=== PATIENT | female | born 1980 | race Caucasian/White ===

== ENCOUNTER 2017-04-02 01:27 | Inpatient (IN) | payer OTHER ==
--- NOTE | 2017-03-17 11:59 | History & Physical Pre-Op ---
General Information and [facility] MD Statement: I have seen and personally examined MARIE JAIN and documented this H&P. The patient is a 36 year old F who presented with a patient stated chief complaint of neck pain radiating to bilateral upper extremities, right > left. Source of Information: patient Exam Limitations: no limitations History of Present Illness: Marie is a 36-year-old white female who has been complaining of neck pain for "years". She does report pain that radiates to bilateral upper extremities, right side greater than left. She denies any numbness/tingling or weakness in her upper extremities. She does report headaches, tinnitus, ear popping, right > left, and head pressure. She states her symptoms do vary depending on her activities but she does report a constant pain. She overall rates her pain as a 6/10 in intensity. She does admit that ice does help alleviate some of her symptoms. She has also tried physical therapy, Medrol dosepak, antibiotics, nonsteroidal anti-inflammatory medications, rest, ice, and heat, all of which have given her minimal and temporary symptom relief. Her MRI scan shows a right sided C5-6 disc herniation with cord abutment with mild right-sided foraminal stenosis. She also has degenerative disc disease. Given the fact that Marie has failed to respond to conservative measures and she has progressively worsening symptoms, she wants nothing more to do with nonsurgical treatment and has been consented for an anterior cervical decompression and fusion at C5-6 with instrumentation and iliac crest bone grafting on 04/02/2017. 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 MOTHER (hypertensionDDDspinal stenosis). maternal grandfather (Diabetes Mellitus). FATHER (hypertension). Psychosocial History Where Do You Live? Home Who Do You Live With? 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 Review of Systems Constitutional: Denies: no symptoms, see HPI. EENTM: Reports: see HPI. Cardiovascular: Reports: palpitations. Respiratory: Denies: no symptoms, see HPI. GI: Denies: no symptoms, see HPI. Genitourinary: Denies: no symptoms, see HPI. Musculoskeletal: Reports: back pain, muscle pain, neck pain. Skin: Denies: no symptoms, see HPI. Neurological/Psychological: Reports: see HPI, headache. Hematologic/Endocrine: Denies: no symptoms, see HPI. Immunologic/Allergic: Denies: no symptoms, see HPI. All Other Systems: Reviewed and Negative Post Menopausal: No Medication List Current Psychiatric Med(s): None Exam & Diagnostic Data Physical Exam: Height: 5'2" Weight: 125lbs. Physical Exam General Appearance Alert, Oriented X3, Cooperative, No Acute Distress Skin No Rashes, No Breakdown, No Significant Lesion HEENT Atraumatic, PERRLA, EOMI, Mucous Membr. moist/pink Neck Supple, No JVD, No thryomegaly, +2 Carotid Pulse wo Bruit Lymphatic Cervical nl Cardiovascular Regular Rate, Normal S1, Normal S2, No Murmurs Lungs Clear to Auscultation Abdomen Normal Bowel Sounds, Soft, No Tenderness, No Hepatospenomegaly, No Masses Neurological Normal Gait, Normal Speech, Strength at 5/5 X4 Ext, Normal Tone, Sensation Intact, Decreased right brachioradialis and biceps reflex., + Spurlings on the right, + Hoffmanns Extremities No Clubbing, No Cyanosis, No Edema, Normal Pulses Vascular Normal Pulses Assessment/Plan Assessment/Plan: Assessment: Right C5-6 disc herniation with cord abutment Plan: Marie is scheduled for an anterior cervical decompression and fusion C5-6 with instrumentation and iliac crest bone grafting on 04/02/2017. We discussed the procedure in full detail as well as the pre-and postoperative course, follow-up care, and anticipated recovery. We also discussed the risks, alternatives, and benefits. The risks were discussed and did not exclude , paralysis, infection, bleeding, continued pain, failure of the surgery, need for future surgery, DVT, vascular injury, CSF leak, hoarseness, and dysphagia, etc., and given these risks, she still wishes to proceed. She is scheduled to follow- up with her primary care physician for preoperative clearance. She has been advised to start taking calcium and vitamin D. Any changes in this patient's plan is based on the patient's outpatient clinical presentation. As Ranked By This Provider Problem List: 1. DDD (degenerative disc disease), cervical Copies To: MARCIANO SWANN,MIMI Ch Attending MD Review Statement Attending Statement Attending MD Statement: examined this patient, discuss w/resident/PA/SALES ADVISOR, agreed w/resident/PA/SALES ADVISOR, reviewed images
[~2017-04-02] VITALS: Ht 157.5 cm; Wt 55.3 kg
--- NOTE | 2017-04-02 10:17 | RADIOLOGY REPORT ---
EXAMINATION: XR CERVICAL SPINE CLINICAL INFORMATION: Anterior cervical discectomy with laminectomy C5-C6 performed in operating room. COMPARISON: None TECHNIQUE: C-arm fluoroscopic imaging support provided to Dr. Molina within operating room. AP and lateral spot fluoroscopy images are submitted into the electronic picture archive (2 saved images). Fluoroscopy time: 0.4 minutes. Dose: 1.44 mGy. FINDINGS: The patient is intubated within the operating room and fluoroscopic images demonstrate surgical changes of anterior discectomy and fusion at C5-C6. The anterior fusion plate, screws and intervertebral disc spacer/graft are in satisfactory position. The cervical alignment is normal. IMPRESSION: C-arm fluoroscopic imaging support provided to operating room for C5-C6 discectomy-fusion.
--- NOTE | 2017-04-02 10:20 | Operative Report ---
Operative/Inv Procedure Report Surgery Date: 04/02/17 Name of Procedure: Cervical discectomy and fusion with tricortical intradiscal autologous bone graft and anterior plate fixation C56 harvesting of tricortical structural bone graft right anterior iliac crest use of fluoroscopy. Pre-Operative Diagnosis: HNP C5 6 Post-Operative Diagnosis: HNP C5 6 Estimated Blood Loss: less than 50ml Surgeon/Dance Teacher: KEELY SWANN,TRISTEN HARRIS Anesthesia: general endotracheal tube Operative/Procedure Note Note: After adequate general anesthesia was achieved the patient was placed in the supine position with the head turned to the left and the shoulders taped to the side. Risks of the neck and right anterior iliac crest were sterilely prepped and draped and incision was made in line with the skin crease limits of the neck and carried sharply through the platysma. Blunt dissection was carried medial to the neurovascular bundle lateral to the visceral structures and a bent needle was placed within the C5 6 disc space. Fluoroscopy verified surgical level. The deep retractors were gently placed. Sharp annulotomy was created in C5 6 and the lamina leg breaker was used to gently distract directly disc space. The discectomy was performed through the annulus and posterior longitudinal ligament with the pituitary Olvin and the curettes. As a large herniated disc which was easily removed. The endplates were debrided with the high-speed bur and irrigation. Surgery went of the right anterior iliac crest. Subperiosteal dissection was carried medial and lateral to the crest the deep retractors were placed and the oscillating saw was used to collect a tricortical Loomis-Perez type graft. The wound was irrigated packed with bone stimulating implant and closed in layers with absorbable suture with subcuticular nylon in the skin. The graft was flushed with the high-speed bur to fit the disc space to be fused. Graft was tamped into position with excellent purchase in both endplates. Anterior plate was applied with excellent purchase in all 4 screws and the plate was put in using fluoroscopy in AP and lateral plane. Wound was irrigated hemostasis been achieved and a closure the platysma was performed with absorbable suture the skin was closed with nylon sterile dressings were applied and the patient was placed a cervical collar and [facility].
--- NOTE | 2017-04-02 10:34 | Patient Discharge Instructions ---
Acute Coronary Syndrome Inclusion Criteria At DC or during hospital stay patient has or had the following: ACS DIAGNOSIS No Discharge Core Measures Meds if any: Prescribed or Continued at Discharge Meds if any: NOT Prescribed or Continued at Discharge Congestive Heart Failure Inclusion Criteria At DC or during hospital stay patient has or had the following: CHF DIAGNOSIS No Discharge Core Measures Meds if any: Prescribed or Continued at Discharge Meds if any: NOT Prescribed or Continued at Discharge Cerebrovascular accident Inclusion Criteria At DC or during hospital stay patient has or had the following: CVA/TIA Diagnosis No Discharge Core Measures Meds if any: Prescribed or Continued at Discharge Meds if any: NOT Prescribed or Continued at Discharge Venous thromboembolism Inclusion Criteria VTE Diagnosis No VTE Type NONE VTE Confirmed by (Test) NONE Discharge Core Measures - Per Current guidelines, there needs to be overlap - treatment for the first 5 days of Warfarin therapy. - If discharged on Warfarin prior to 5 days of - overlap therapy, the patient will need to be - assessed for post discharge needs including - *Post discharge parental anticoagulation - *Warfarin and/or parental anticoagulation education - *Follow up date to check INR post discharge At least 5 days overlap therapy as Inpatient No Meds if any: Prescribed or Continued at Discharge Note: Overlap Therapy is Warfarin and Anticoagulant Meds if any: NOT Prescribed or Continued at Discharge
[2017-04-02] MEDS ORDERED: MILK OF MA400 MG/52 PO (10:37)
[2017-04-02] MEDS ORDERED: TYLENOL325 M1 PO (10:37)
[2017-04-02] MEDS ORDERED: PERCOCET 5-3251 EACH PO (10:37)
[2017-04-02] MEDS ORDERED: BISAC-EVAC10 M1 PR (10:37)
[2017-04-02] MEDS ORDERED: VITAMIN D31000 UNI2 PO (10:37)
[2017-04-02] MEDS ORDERED: ONE DAILY MULT1 EAC2 PO (10:37)
[2017-04-02] MEDS ORDERED: CALCIUM CARBON500 M2 PO (10:37)
[2017-04-02] MEDS ORDERED: DOCUSATE SODIU100 M3 PO (10:37)
[2017-04-02 12:30] VITALS: BP 106/60
--- NOTE | 2017-04-02 12:53 | PN- Orthopedic ---
Subjective Subjective: The patient was seen this afternoon postoperatively. She reports her pain was under adequate control and only complaints of a mild sore throat but denies any difficulty swallowing. The patient denies any numbness, weakness, or tingling in her extremities Objective Vital Signs and I&Os Vital signs: Blood pressure 130/60, pulse 75, temperature 97.2, O2 saturation 100% on room air I's and O's: 1700 ML's in of lactated Ringer's/patient has yet to void/EBL 50 ML Physical Exam: Gen.: Alert and in no obvious distress Skin: Warm and dry Neck: Supple with no notable hematoma or significant edema. Surgical dressing was clean, dry, and intact. Cardiac: S1-S2 regular Pulmonary: Bilateral breath sounds were equal with good exchange Extremities: Patient moves all 4 extremities with equal 5 out of 5 strength. Gross motor and sensory were intact. Bilateral lower extremities are warm without calf tenderness or significant edema. Assessment/Plan Assessment/Plan Assessment: 36 old female status post ACDF C5 through 6. Postoperative the patient is progressing as expected and her pain is under adequate control. She has a stable and nonfocal neuro exam. Plan: Out of bed and ambulate Continue current pain regiment IV hydration Strict I's and O's Advance diet as tolerated Monitor for postoperative void 1 dose of postoperative prophylactic antibiotics GI and DVT prophylaxis with Alps and early ambulation only.Cutaneous heparin due to bleeding risk and surgical contraindication Core Measures/Miscellaneous Venous Thromboembolism VTE Risk Factors: Surgery VTE Contraindications: Severe Spine Trauma x4 wk No Pharm VTE Prophylaxis D/T: Surgical Contraindication VTE Diagnosis: No Beta Carson Is Beta Carson a Home Med? No Antibiotics Is Patient on Antibiotics? Yes If Yes: prophylaxis
[2017-04-02 14:51] VITALS: BP 118/68
[2017-04-02 16:30] VITALS: BP 124/70
[2017-04-02 18:38] VITALS: BP 130/80
[2017-04-02 22:26] VITALS: BP 118/60
[2017-04-03 02:30] VITALS: BP 116/62
[2017-04-03 06:32] VITALS: BP 120/74
--- NOTE | 2017-04-03 07:12 | PN- Orthopedic ---
Subjective Subjective: The patient seen this morning postoperatively day #1. She complains of some incisional soreness but is otherwise comfortable at the current pain regiment. She was slightly nauseous last night after taking Percocet and empty stomach currently denies any nausea this morning. She has no complaints at the current time and denies any numbness, tingling, or weakness in her extremities. Objective Vital Signs and I&Os Vital Signs Date Time Temp Pulse Resp B/P B/P Pulse O2 O2 Flow FiO2 Mean Ox Delivery Rate 04/03 0632 98.8 76 16 120/74 99 Room Air 06/ 0230 98.3 76 16 116/62 98 Room Air 06/ 2226 98.4 77 20 118/60 97 Room Air / 1838 98.6 98 20 130/80 99 Room Air / 1630 97.9 94 20 124/70 100 Room Air 06/ 1451 97.4 86 20 118/68 100 06/08 1230 97.8 86 16 106/60 99 Room Air Intake & Output 04/03 0800 06/ 0000 /08 1600 /08 0800 06/08 0000 06/07 1600 Intake Total 300 320 Output Total 800 1300 Balance -500 -1300 320 Intake, IV 200 Intake, Oral 300 120 Number 0 Bowel Movements Output, Urine 800 1300 Patient 122 lb Weight Weight Reported by Patient Measurement Method Physical Exam: Gen.: Alert and in no obvious distress Skin: Warm and dry Neck: In soft surgical collar with a clean and intact surgical dressing. There is no significant edema or hematoma appreciated. Extremities: Patient moves all 4 extremities with equal 5 out of 5 strength. Gross motor and sensory are intact. Bilateral lower extremities are warm without calf tenderness or significant edema. Assessment/Plan Assessment/Plan Assessment: 36-year-old female status post ACD fusion C5-6 postoperative day 1.. The patient is progressing as expected, her pain is in adequate control, and she is a nonfocal neuro exam. Plan: Out of bed and ambulate's Patient was advised to take pain medication after having some breakfast GI and DVT prophylaxis with early ambulation Alps only no subcutaneous heparin due to surgical contraindication. Continue current pain regiment Possible discharge home later today Core Measures/Miscellaneous Venous Thromboembolism VTE Risk Factors: Surgery VTE Contraindications: Severe Spine Trauma x4 wk No Pharm VTE Prophylaxis D/T: Surgical Contraindication VTE Diagnosis: No Beta Carson Is Beta Carson a Home Med? No Antibiotics Is Patient on Antibiotics? No
[2017-04-03 14:31] VITALS: BP 130/80
--- NOTE | 2017-04-03 14:40 | PN- Orthopedic ---
Subjective Subjective: Patient is complaining of expected postoperative incisional discomfort. She does have some mild muscle soreness in the back of her neck. She has had resolution of her preoperative symptoms in her right arm with no further numbness/tingling or weakness in her right upper extremity. She denies any dysphagia or hoarseness. She has been tolerating by mouth diet and her Percocet for pain. She has been voiding without difficulty and has been ambulating without assistance. She is eager for discharge home. Review of Systems: Remarkable for the above complaints. Objective Vital Signs and I&Os Vital Signs Date Time Temp Pulse Resp B/P B/P Pulse O2 O2 Flow FiO2 Mean Ox Delivery Rate 04/03 1431 98.2 76 18 130/80 100 Room Air 04/03 1044 Room Air 04/03 0632 98.8 76 16 120/74 99 Room Air / 0230 98.3 76 16 116/62 98 Room Air / 2226 98.4 77 20 118/60 97 Room Air / 1838 98.6 98 20 130/80 99 Room Air / 1630 97.9 94 20 124/70 100 Room Air /08 1451 97.4 86 20 118/68 100 Intake & Output 04/03 1600 06/09 0800 /09 0000 /08 1600 /08 0800 06/08 0000 Intake Total 600 300 320 Output Total 107 013 4105 Balance -100 -500 -1300 320 Intake, IV 200 Intake, Oral 600 300 120 Number 0 Bowel Movements Output, Urine 372 169 4538 Patient 122 lb Weight Weight Reported by Patient Measurement Method Physical Exam General Appearance: well developed/nourished, no apparent distress, alert, awake Head: atraumatic, normal appearance Neck: Incision C/D/I. Dressings changed. Respiratory: normal breath sounds, no respiratory distress Cardiovascular: regular rate/rhythm Abdomen: normal bowel sounds, soft, non-tender Neurologic/Psychiatric: Neurovascularly intact with no new or worsening gross motor or sensory loss. Skin: intact, normal color, warm/dry Assessment/Plan Assessment/Plan Assessment: Yesenia is status post anterior cervical decompression fusion at C5 6 with instrumentation and iliac crest bone grafting. Plan: Yesenia has been deemed stable for discharge home. She will continue with her by mouth Percocet for pain. She will continue to apply ice and modify her activities. We went over the do's and don'ts and postoperative expectations. Her discharge instructions were given. We will follow up with her in one week for suture removal. She has been advised to call with any new or worsening symptoms in the meantime. Problem List: 1. DDD (degenerative disc disease), cervical Core Measures/Miscellaneous Venous Thromboembolism VTE Risk Factors: Surgery VTE Contraindications: Severe Spine Trauma x4 wk No Pharm VTE Prophylaxis D/T: Surgical Contraindication VTE Diagnosis: No Beta Carson Is Beta Carson a Home Med? No Antibiotics Is Patient on Antibiotics? No Attending MD Review Statement Attending Statement Attending MD Statement: examined this patient, discuss w/resident/PA/CYBER INCIDENT ANALYST, agreed w/resident/PA/CYBER INCIDENT ANALYST
--- NOTE | 2017-04-03 14:50 | Surgical Discharge Summary ---
Visit Information Visit Dates Admission Date: 04/02/17 Discharge Date: 04/03/17 History of Present Illness Chief Complaint: Neck pain radiating to her right arm with numbness and tingling. 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 MOTHER (hypertensionDDDspinal stenosis). maternal grandfather (Diabetes Mellitus). FATHER (hypertension). Psychosocial History Where Do You Live? Home Who Do You Live With? Spouse Services at Home: None What is Your Primary Language? Iranian ETOH Use: occasional use Other Addictive Behavior: with 3 children Review of Systems: Remarkable for the above complaints. Hospital Course Course Attending Physician: STEVEN RIGGS MD Primary Care Physician[facility] Course: Yesenia is a 36-year-old white female who is been complaining of progressively worsening neck pain radiating to her right arm with associated numbness and tingling. Her MRI showed a large C5-C6 disc herniation with cord compression. Yesenia had failed to respond to conservative measures and given her progressively worsening symptoms and MRI findings, she wanted nothing more to do with nonsurgical treatment. She was consented for an anterior cervical decompression fusion at C5 6 with instrumentation and iliac crest bone grafting scheduled for 04/02/2017. Yesenia underwent surgery on 04/02/2017 without any complications. Please refer to the operative report for further detail. She was sent to the recovery room in stable condition. We did keep her on IV antibiotics for postoperative infection prophylaxis as well as IV fluids for hydration. We did place her on IV morphine and by mouth Percocet as needed for pain. PT was consulted for ambulation, gait training, and discharge planning. Yesenia did well on postoperative day 1. She was tolerating her by mouth Percocet. She did have some initial nausea and vomiting which was resolved with Zofran. She ambulated with physical therapy without difficulty. She was tolerating a regular diet and was voiding without difficulty. She did have positive flatus. On 04/03/2017, she was deemed stable for discharge home. Complications: None Allergies: Coded Allergies: Sulfa (Sulfonamide Antibiotics) (Mild, lip tingling 03/17/17) Significant Procedures: Status post anterior cervical decompression fusion C5 6 with instrumentation and iliac crest bone grafting on 04/02/2017. Disposition Summary Disposition Principal Diagnosis: C5 6 disc herniation with cord compression. Additional Diagnosis: Degenerative disc disease at C5 6 Discharge Disposition: home or self care Discharge Instructions General Discharge Information Code Status: Full Code Patient's Diet: Regular as tolerated Patient's Activity: Weightbearing as tolerated. No heavy lifting greater than 5 pounds. No bending , twisting, pulling, or pushing. No driving. Follow-Up Instructions/Appts: Please see full discharge instructions of Dr. Steven Hampton. Change dressing daily. Apply ice. Cervical collar when necessary for comfort. Call with any fever, chills, shortness of breath, or wound drainage. Medications at Discharge Discharge Medications: Start taking the following new medications: Oxycodone HCl/Acetaminophen (Percocet 5-325 MG Tablet) 5 MG-325 MG TABLET 2 Tablet ORAL EVERY 4 HOURS NEEDED as needed for PAIN SCALE 7-10 (SEVERE) Qty = 90 No Refills Instructions: 1-2 TABS PO Q 4-6 HRS PRN PAIN Comments: Last Taken:04/03/17 Time:1230 PM Acetaminophen (Tylenol) 325 MG TABLET 650 Milligram ORAL EVERY 4 HOURS NEEDED as needed for TEMP > 101.5 Qty = 30 Refills = 1 Comments: Last Taken:NOT GIVEN IN HOSPITAL Time: Calcium Carbonate (Calcium Carbonate) 500 MG CALCIUM (1,250 MG) TABLET 600 Milligram ORAL TWICE DAILY Qty = 90 Refills = 1 Comments: Last Taken:04/03/17 Time:0830 Bisacodyl (Bisac-Evac) 10 MG SUPP.RECT 10 Milligram RECTALLY DAILY NEEDED as needed for CONSTIPATION Qty = 30 Refills = 1 Comments: Last Taken:NOT GIVEN IN HOSPITAL Time: Docusate Sodium (Docusate Sodium) 100 MG CAPSULE 100 Milligram ORAL TWICE DAILY Qty = 60 Refills = 1 Comments: Last Taken:04/03/17 Time:0830 Magnesium Hydroxide (Milk Of Magnesia) 400 MG/5 ML ORAL.SUSP 30 Milliliters ORAL AT BEDTIME as needed for CONSTIPATION Qty = 1 Refills = 1 Comments: Last Taken:NOT GIVEN IN HOSPITAL Time: Cholecalciferol (Vitamin D3) 1,000 UNIT TABLET 1,000 International Unit ORAL DAILY Qty = 30 Refills = 1 Comments: Last Taken:04/03/17 Time:0830 Multivitamin (One Daily Multivitamin) 1 EACH TABLET 1 Tablet ORAL DAILY Qty = 30 Refills = 1 Comments: Last Taken:04/03/17 Time:0830 Copies To: KEELY SWANN,STEVEN Attending MD Review Statement Attending Statement Attending MD Statement: examined this patient, discuss w/resident/PA/GRINDING MACHINE OPERATOR, agreed w/resident/PA/GRINDING MACHINE OPERATOR
== END 2017-04-03 16:50 | DRG 473 ==
LOC: 2NA 01:27 → SDA 01:27 → ENRESERV 10:37 → ENTRNSPT 11:30 → EDTRNSPT 11:59 → EDTRNSPTTYP 11:59 → 2NA 12:10 → CMPTRNSPT 12:36 → 2NA 04-03 16:50
PROVIDERS: ADMIT Orthopaedic Surgery Orthopaedic Surgery of the Spine
PROC: 0QB20ZZ Excision of Right Pelvic Bone, Open Approach (ICD-10-PCS; principal; 2017-04-02)
PROC: 0RG1070 Fusion of Cervical Vertebral Joint with Autologous Tissue Substitute, Anterior Approach, Anterior Column, Open Approach (ICD-10-PCS; principal; 2017-04-02)
PROC: 0RT30ZZ Resection of Cervical Vertebral Disc, Open Approach (ICD-10-PCS; principal; 2017-04-02)
DX: M50.222 Other cervical disc displacement at C5-C6 level (principal)
CPT/HCPCS: 2NAP; 72040; 81025; 88304; 97116-GO; 97161-GP; J0131; J0690; J2405; J3250; J3490; J7120